=== PATIENT | male | born 1940 | race Caucasian/White ===

== ENCOUNTER 2017-05-18 11:11 | Emergency (ER) | payer MEDICARE, OTHER ==
[~2017-05-18] VITALS: Ht 188 cm; Wt 87.4 kg
[2017-05-18 11:36] VITALS: BP 124/64; PULSE 51; RESP 16; TEMP 97.4; O2SAT 98
[2017-05-18] MEDS ORDERED: ACEB200C PO (12:19)
[2017-05-18] MEDS ORDERED: benadryl PO (12:19)
[2017-05-18] MEDS ORDERED: ASPI-183 PO (12:19)
[2017-05-18] MEDS ORDERED: BENZ100 PO (12:19)
[2017-05-18] MEDS ORDERED: ZANT150T2 PO (12:19)
--- NOTE | 2017-05-18 13:06 | RADRPT ---
EXAM DATE/TIME: 05/18/2017 12:34 [facility] COMPARISON: No previous studies available for comparison. INDICATIONS : Trauma, trip and fall today. Right facial abrasions. RADIATION DOSE: 25.48 CTDIvol (mGy) MEDICAL HISTORY : Cardiovascular disease. SURGICAL HISTORY : None. ENCOUNTER: Initial ACUITY: 1 day PAIN SCORE: 4/10 LOCATION: Right facial TECHNIQUE: Volumetric scanning of the facial bones was performed. Using automated exposure control and adjustme nt of the mA and/or kV according to patient size, radiation dose was kept as low as reasonably achiev able to obtain optimal diagnostic quality images. DICOM format image data is available electronicall y for review and comparison. FINDINGS: ORBITS: The orbital and infraorbital osseous structures are intact. The retroconal structures have a normal configuration. No radiopaque foreign bodies are seen. NASAL BONE: The nasal bone and maxillary spine are intact ZYGOMATIC ARCHES: Symmetric without evidence of fracture. SINUSES: There is mucosal thickening as well as a small amount of fluid in the right maxillary sinus. Otherwis e, the rest of the paranasal sinuses are grossly clear. NASAL CAVITY: Nasal septal deviation to the right. SOFT TISSUES: There is soft tissue swelling over the anterior right cheek. There is a linear minimally depressed fr acture involving the anterior wall of the right maxillary sinus. The rest of the bony structures surr ounding the maxillary sinuses are grossly intact. INTRACRANIAL: No intracranial air seen. CRIBIFORM PLATE: Grossly intact. CONCLUSION: 1. There is a minimally depressed linear fracture involving the anterior wall of the right maxillary sinus. There is adjacent soft tissue swelling in the subcutaneous soft tissues of the anterior right cheek. There is a small amount of fluid within the right maxillary sinus. 2. Otherwise, the rest of the facial bones are grossly intact. Julio Cho MD on May 18, 2017 at 13:00 Board Certified Radiologist. This report was verified electronically.
--- NOTE | 2017-05-18 13:10 | RADRPT ---
EXAM DATE/TIME: 05/18/2017 12:34 [facility] COMPARISON: No previous studies available for comparison. INDICATIONS : Trauma, trip and fall today. Neck pain. RADIATION DOSE: 26.78 CTDIvol (mGy) MEDICAL HISTORY : Cardiovascular disease. SURGICAL HISTORY : None. ENCOUNTER: Initial ACUITY: 1 day PAIN SCALE: 4/10 LOCATION: neck TECHNIQUE: Volumetric scanning of the cervical spine was performed. Multiplanar reconstructions in the sagittal, coronal and oblique axial planes were performed. Using automated exposure control and adjustment o f the mA and/or kV according to patient size, radiation dose was kept as low as reasonably achievable to obtain optimal diagnostic quality images. DICOM format image data is available electronically f or review and comparison. FINDINGS: Vertebral body heights are maintained. Osseous structures are intact without evidence for acute bony fracture. Dens is intact. Subtle, less than 2 mm, anterolisthesis of C4 on C5. There is a normal C1-2 relationship. Facets are normally aligned. There is no significant prevertebral soft tissue hematoma . Significant disc space narrowing at C5-6 and C6-7 with prominent osteophyte formation. Associated b berna central canal narrowing, eccentric to the left at C5-6 and eccentric to the right at C6-7. Associ ated severe left and moderate right bony neural foraminal narrowing at C5-6 and C6-7. Severe bilatera l neural foraminal narrowing at C7-T1 secondary to osteophyte. Prominent multilevel facet arthropathy . No significant cervical adenopathy or gross mass. The thyroid appears unremarkable. Visualized lung apices are clear without pneumothorax. CONCLUSION: 1. Subtle, less than 2 mm, anterolisthesis of C4 on C5 likely degenerative in etiology. Flexion and e xtension views may be obtained if there is continued clinical concern regarding ligamentous instabili ty. 2. No acute fracture. 3. Advanced multilevel degenerative spondylosis with bony central canal narrowing and neural foramina l stenosis most prominently at C5-T1, as above. Eleno Kramer MD on May 18, 2017 at 13:03 Board Certified Radiologist. This report was verified electronically.
[2017-05-18] MEDS ORDERED: AUGM875T3 PO (14:23)
--- NOTE | 2017-05-18 14:24 | PD ---
HPI Chief Complaint: Fall Time Seen by Provider: 12:15 Travel History International Travel<30 days: No Contact w/Intl Traveler<30days: No Traveled to known affect area: No History of Present Illness HPI This is a 77-year-old male here for evaluation of facial pain after he had a mechanical trip and fall while playing racquetbVivaty. He reports his right shoe stuck to the floor causing him to fall forward onto his right knee and injuring the right side of his face on the floor. No loss of consciousness. Patient is not anticoagulated. No headache or visual changes. He has pain over the right cheek and right brow. Mall laceration to the right brow with no active bleeding. He denies any pain other than his right cheek. Severity is mild to moderate. Aggravated by palpation of the area. No alleviating factors. PFSH Past Medical History Hx Anticoagulant Therapy: Yes (asa 325mg) Atrial Fibrillation: Yes Cardiovascular Problems: Yes (a-fib) Diminished Hearing: No Immunizations Current: Yes Tetanus Vaccination: < 5 Years Influenza Vaccination: Yes Past Surgical History Surgical History: No Previous Surgery Social History Alcohol Use: Yes (daily) Tobacco Use: No Substance Use: No Allergies-Medications (Allergen,Severity, Reaction): Coded Allergies: No Known Allergies (Unverified , 05/18/17) Reported Meds & Prescriptions Reported Meds & Active Scripts Active Reported Tessalon Perles (Benzonatate) 100 Mg Cap 100 Mg PO TID PRN [benadryl] 1 Tab PO DIRECTED Zantac (Ranitidine HCl) 150 Mg Tab 150 Mg PO DAILY Aspirin 325 Mg Tab 325 Mg PO DAILY Acebutolol (Acebutolol HCl) 200 Mg Cap 200 Mg PO DAILY Review of Systems Except as stated in HPI: all other systems reviewed are Neg General / Constitutional: No: Fever Eyes: No: Visual changes HENT: No: Headaches Cardiovascular: No: Chest Pain or Discomfort Respiratory: No: Shortness of Breath Gastrointestinal: No: Abdominal Pain Genitourinary: No: Dysuria Skin: No Rash Neurologic: No: Weakness Physical Exam Narrative GENERAL: Alert and well-appearing 77-year-old male SKIN: Warm and dry. 1.5 cm abrasion to the right brow. Abrasion to the right cheek. HEAD: Normocephalic. EYES: Pupils equal and round. EOMs intact. No injection or drainage. ENT: No nasal bleeding or discharge. No deformity. Mucous membranes pink and moist. NECK: Trachea midline. No JVD. No midline spine tenderness. CARDIOVASCULAR: Regular rate and rhythm. No chest wall tenderness. Heart rate mid 60s RESPIRATORY: No accessory muscle use. Clear to auscultation. Breath sounds equal bilaterally. GASTROINTESTINAL: Abdomen soft, non-tender, nondistended. Hepatic and splenic margins not palpable. MUSCULOSKELETAL: Extremities without clubbing, cyanosis, or edema. No obvious deformities. Small abrasion to the right anterior knee. No bony tenderness. NEUROLOGICAL: Awake and alert. No obvious cranial nerve deficits. Motor grossly within normal limits. Five out of 5 muscle strength in the arms and legs. Normal speech. PSYCHIATRIC: Appropriate mood and affect; insight and judgment normal. Data Data Last Documented VS Vital Signs Date Time Temp Pulse Resp B/P (MAP) Pulse Ox O2 Delivery O2 Flow Rate FiO2 05/18/17 11:36 97.4 51 16 124/64 (84) [address] Facial Bones W/O Iv Cont (05/18/17 ) Ct Cerv Spine W/O Contrast (05/18/17 ) MDM Medical Decision Making Medical Screen Exam Complete: Yes Emergency Medical Condition: Yes Differential Diagnosis Facial fracture, facial laceration, cervical spine fracture, cervical strain, Narrative Course 77-year-old male who had a mechanical trip and fall while playing picketball injuring the right side of his face. He has a normal neurologic exam. He has small laceration to the right brow which was sutured closed. He was found to have a small right mildly displaced sinus fracture. CT of cervical spine was negative. Patient will be put on amoxicillin and instructed to follow-up with ice facial surgeon. Return precautions were discussed. Patient verbalizes understanding and agrees to plan Procedures Procedure Narrative LACERATION LOCATION: Right brow, right cheek LENGTH: 1.5 cm, 0.5 CM NUMBER OF STITCHES/DOV: [5] REPAIR: The area of the laceration was prepped with Betadine and sterilely draped. The laceration was infiltrated with 1% lidocaine. The wound was copiously irrigated and explored without evidence of foreign body, tendon injury or neurovascular injury. The wound was closed using 5-0 Ethilon. This was a single layer repair. A sterile dressing was applied. The patient was advised to keep the dressing clean and dry. Patient tolerated the procedure well. Diagnosis Primary Impression: Fracture of maxillary sinus Qualified Codes: S02.401A - Maxillary fracture, unspecified side, initial encounter for closed fracture Additional Impression: Facial laceration Qualified Codes: S01.81XA - Laceration without foreign body of other part of head, initial encounter Referrals: Oral Maxillofacial Surgeon Additional Instructions: Sutures need to be removed in 5-7 days. Antibiotics as directed. Make a follow-up appointment with maxillofacial surgeon. Tylenol and ibuprofen as needed for pain. Or turn if he have new or worsening symptoms. Scripts Amoxicillin-Clavulanate (Augmentin) 875-125 Mg Tab 1 TAB PO BID for Infection, #20 TAB 0 Refills Prov: Ashley Velazquez 05/18/17 Disposition: 01 DISCHARGE HOME Condition: Stable Ashley Velazquez May 18, 2017 14:24
== END 2017-05-18 14:36 | disposition home or self-care (01) ==
LOC: PHEFT 11:11
DX: S02.401A Maxillary fracture, unspecified side, initial encounter for closed fracture (principal); S01.411A Laceration without foreign body of right cheek and temporomandibular area, initial encounter; I48.91 Unspecified atrial fibrillation; W01.0XXA Fall on same level from slipping, tripping and stumbling without subsequent striking against object, initial encounter; Y93.69 Activity, other involving other sports and athletics played as a team or group; Z79.82 Long term (current) use of aspirin
CPT/HCPCS: 12011; 70486; 72125

== ENCOUNTER 2017-05-24 11:09 | Emergency (ER) | payer MEDICARE, OTHER ==
[~2017-05-24] VITALS: Ht 185.4 cm; Wt 86.5 kg
[~2017-05-24 11:09] MED LIST: ACEB200C PO; ASPI-183 PO; AUGM875T3 PO; BENZ100 PO; ZANT150T2 PO; benadryl PO
[2017-05-24 11:15] VITALS: BP 126/76; PULSE 52; RESP 16; TEMP 97.3; O2SAT 98
--- NOTE | 2017-05-24 12:28 | PD ---
HPI Chief Complaint: Wound/Suture/Staple Re-Check Time Seen by Provider: 11:48 Travel History International Travel<30 days: No Contact w/Intl Traveler<30days: No Traveled to known affect area: No History of Present Illness HPI 77-year-old male here for suture removal to his right eyebrow and right cheek. Patient sustained a trip and fall causing lacerations to the face by a week ago. He denies any pain, fever, redness or drainage from the site. No headache or visual changes. PFSH Past Medical History Hx Anticoagulant Therapy: Yes (asa 325mg) Atrial Fibrillation: Yes Cardiovascular Problems: Yes (a-fib) Diminished Hearing: No Immunizations Current: Yes Tetanus Vaccination: Unknown Social History Alcohol Use: Yes (daily) Tobacco Use: No Substance Use: No Allergies-Medications (Allergen,Severity, Reaction): Coded Allergies: No Known Allergies (Unverified , 05/24/17) Reported Meds & Prescriptions Reported Meds & Active Scripts Active Augmentin (Amoxicillin-Clavulanate) 875-125 Mg Tab 1 Tab PO BID Reported Tessalon Perles (Benzonatate) 100 Mg Cap 100 Mg PO TID PRN [benadryl] 1 Tab PO DIRECTED Zantac (Ranitidine HCl) 150 Mg Tab 150 Mg PO DAILY Aspirin 325 Mg Tab 325 Mg PO DAILY Acebutolol (Acebutolol HCl) 200 Mg Cap 200 Mg PO DAILY Review of Systems Except as stated in HPI: all other systems reviewed are Neg General / Constitutional: No: Fever Eyes: No: Visual changes HENT: No: Headaches Cardiovascular: No: Chest Pain or Discomfort Physical Exam Narrative GENERAL: Alert and well-appearing 77-year-old male SKIN: Warm and dry. 2 healing lacerations to the face without signs of infection HEAD: Normocephalic. EYES: No injection or drainage. NECK: Supple Data Data Last Documented VS Vital Signs Date Time Temp Pulse Resp B/P (MAP) Pulse Ox O2 Delivery O2 Flow Rate FiO2 05/24/17 11:15 97.3 52 16 126/76 (93) 98 MDM Medical Decision Making Medical Screen Exam Complete: Yes Emergency Medical Condition: Yes Differential Diagnosis Suture removal, wound recheck, abscess Narrative Course 77-year-old male here for suture removal. He has 2 well-healing lacerations to the face. Sutures were removed. Procedures Procedure Narrative 5 sutures removed Diagnosis Primary Impression: Visit for suture removal Referrals: Primary Care Physician Disposition: 01 DISCHARGE HOME Condition: Stable Ashley Velazquez May 24, 2017 12:28
== END 2017-05-24 12:54 | disposition home or self-care (01) ==
LOC: PHEFT 11:09
DX: Z09 Encounter for follow-up examination after completed treatment for conditions other than malignant neoplasm (principal); Z48.02 Encounter for removal of sutures
CPT/HCPCS: 99281